=== PATIENT | female | born 2005 | race Caucasian/White ===

== ENCOUNTER 2025-01-19 15:04 | Inpatient (IN) ==
--- NOTE | 2025-01-19 15:20 | Emergency Department Note ---
Impression & Plan Suicide attempt by drug overdose, Suicide attempt by hanging ED Provider Note HISTORY OF PRESENT ILLNESS: Patient is a 19-year-old female presenting after a suicide attempt via overdose and hanging. Patient reports that she "feels like a failure." She reports that she has been lying to everybody because "I am a failure and not graduating." She reports that she was drinking alcohol last night. Reports that today was supposed to be her graduation and she wanted to end her life because "I am a failure." She reports that she attempted to hang herself with Bhavana lights in her bathroom, but did not lose consciousness and states "I was not even successful like killing myself." She reports that she also took a "lot of Advil." Patient was found unresponsive by her parents this afternoon. Patient reportedly was found with 2 empty bottles of liquid Advil. She reports that the bottles were not completely full but she did take what remained in both of the bottles. Reports that both bottles were about half full. She denies any other medications ingested. She reports her last drink of alcohol was around 1 AM on 01/19/2025. She is currently complaining of neck pain and "my whole body feels noodle-y." ROS: as above PHYSICAL EXAM: Constitutional: Patient appears in no acute distress. HENT: Head: Normocephalic and atraumatic. Eyes: EOMI, PERRL Mouth/Throat: Mucous membranes moist Neck: Trachea midline. Neck supple. Cervical collar in place. Slight abrasions to bilateral anterior/lateral neck Cardiovascular: Tachycardic with regular rhythm. No murmurs, rubs or gallops. Intact distal pulses. Pulmonary/Chest: No respiratory distress. Breath sounds clear and equal bilaterally. No wheezes or rales. Abdominal: Abdomen soft, no tenderness, rebound or guarding. Musculoskeletal: No edema, tenderness or deformity noted. Skin: Warm and dry. No rash, erythema, pallor or cyanosis Psychiatric: Appropriate mood and affect for situation. Neurological: Alert and keenly responsive. CN II-XII grossly intact, moving all extremities equally and fully. MDM: - Vitals signs showed tachycardia. - History obtained via patient. History as above. - Chronic conditions affecting care: None - Differential diagnoses include, but are not limited to: Alcohol intoxication; drug intoxication; acute kidney injury; electrolyte abnormality - Order placed for continuous cardiac monitoring. At this time, monitor showed rate of 90 bpm with normal sinus rhythm, per my interpretation. - External medical records reviewed. - Patient ingested anywhere from 20-40 tabs of 200 mg PO advil. - Called Poison Control at 15:18. Recommended observation for 4-6 hours from ingestion. They reported that symptoms of severe toxicity include acidosis, mental status changes, MOTOR SETTER depression, encephalopathy, seizure (with massive ingestion >400 mg/kg), LUZ, nausea and vomiting. - EKG image interpreted by myself showed normal sinus rhythm. Rate tachycardic at 134 bpm. QRS 68. No acute ischemic changes. - Laboratory workup interpreted by myself showed leukocytosis (WBC 14.15); normal PT/INR; stable electrolytes; negative hCG; normal lipase; normal troponin; normal AST/ALT; negative salicylate level; slightly positive medical alcohol (35.5); elevated acetaminophen level (49) - UA showed evidence of infection. Given 2 g IV Rocephin. Patient will require Keflex 500 mg 3 times daily for 7 days for treatment of her UTI while inpatient. - VBG shows slight acidosis at 7.35. - UDS negative - CTA head/neck negative for acute pathology. - Patient given 2L NS in ER and 4 mg IV zofran for nausea. - Patient was observed in the emergency department for 6 hours. She was deemed medically cleared at 21:05 on 01/19/2025. - Patient control center called back at 21:39. They report that given her acetaminophen level greater than 10 and unknown ingestion time, they recommend starting N-acetylcysteine on the patient. I did explain to them that the patient is denying any coingestions with Tylenol and on further questioning she reported that her ingestion time of the Advil was 11:30 AM to 12 PM. However, they report that given her elevated level on lab draw and no reported Tylenol ingestion, they recommend initiating N-acetylcysteine. Did report that a repeat level was being drawn, and they report that they would call back. - Repeat tylenol level at 22:20 was within normal limits at 20. However, on further discussion with the Poison Control Center at 22:23, they report that because the level was greater than 10 the patient had denied taking any Tylenol, she should still receive the 21 hour treatment of N-acetylcysteine. Recommended that LFTs and PT/INR be repeated 12 hours into the treatment. They state that if the LFTs or INR are rising, the patient needs to be continued on NAC. - N-acetylcysteine ordered. - Discussion was had with disability case manager about patient's case and need for admission - Hospitalist, Dr. Garcia, consulted for admission - Patient admitted to [facility]ist service for further evaluation and management. ASSESSMENT AND PLAN: Diagnosis: Suicide attempt via drug overdose; suicide attempt by hanging Plan: Admit Past Med/Surg History Problem List (Updated 01/19/25 @ 22:29 by Saima Gao MD) Suicide attempt by hanging (Acute) Suicide attempt by drug overdose (Acute) Social History Smoking Status: Never smoker Preferred Language: Hong Konger Feels Safe at Home: Yes Gender Identity: Female Allergies Allergies Allergy/AdvReac Type Severity Reaction Status Date / Time No Known Allergies Allergy Verified 01/19/25 16:22 Home Meds Home Medications Medication Instructions Recorded Confirmed ibuprofen 200 mg tablet (Advil) 400 mg PO Q6H PRN Pain 01/19/25 01/19/25 Results & Data (ED) Vital Signs Vital Signs - 24 hr 01/19/25 15:09 01/19/25 15:09 01/19/25 15:09 Temperature 36.4 C L 36.4 C L 36.4 C L Temperature Source Oral Oral Pulse Rate 115 H 115 H Pulse Rate [Apical] 115 H Pulse Rhythm [Apical] Pulse Strength [Apical] Respiratory Rate 22 22 22 Respiratory Effort / Characteristics Non-Labored Respiratory Depth Normal Respiratory Pattern Regular Blood Pressure 164/102 H 164/102 H Blood Pressure [Left Arm] 164/102 H Blood Pressure Mean 122 Blood Pressure Mean [Left Arm] 122 Blood Pressure Position Lying Blood Pressure Position [Left Arm] Semi-fowlers Pulse Oximetry 95 95 95 Oxygen Delivery Method Nasal Cannula Nasal Cannula Nasal Cannula Oxygen Flow Rate 2 2 2 Sepsis Recent Fever Within 48 Hours No Sepsis New/Unexplained Change in Mental Status No Sepsis Action Taken by Nursing Physician Notified Oxygen Flow Rate - Titration Pulse Oximetry Post Tiitration 01/19/25 16:07 01/19/25 16:17 01/19/25 16:48 Temperature Temperature Source Pulse Rate 109 H 114 H Pulse Rate [Apical] 125 H Pulse Rhythm [Apical] Pulse Strength [Apical] Respiratory Rate 18 14 Respiratory Effort / Characteristics Respiratory Depth Respiratory Pattern Blood Pressure Blood Pressure [Left Arm] 143/87 H Blood Pressure Mean Blood Pressure Mean [Left Arm] 105 Blood Pressure Position Blood Pressure Position [Left Arm] Semi-fowlers Pulse Oximetry 100 98 Oxygen Delivery Method Room Air Room Air Oxygen Flow Rate Sepsis Recent Fever Within 48 Hours Sepsis New/Unexplained Change in Mental Status Sepsis Action Taken by Nursing Oxygen Flow Rate - Titration Pulse Oximetry Post Tiitration 01/19/25 16:48 01/19/25 16:58 01/19/25 18:03 Temperature Temperature Source Pulse Rate Pulse Rate [Apical] 126 H 109 H Pulse Rhythm [Apical] Pulse Strength [Apical] Respiratory Rate 13 17 Respiratory Effort / Characteristics Respiratory Depth Respiratory Pattern Blood Pressure Blood Pressure [Left Arm] 168/107 H 120/87 Blood Pressure Mean Blood Pressure Mean [Left Arm] 127 98 Blood Pressure Position Blood Pressure Position [Left Arm] Semi-fowlers Semi-fowlers Pulse Oximetry 97 95 Oxygen Delivery Method Room Air Room Air Room Air Oxygen Flow Rate Sepsis Recent Fever Within 48 Hours Sepsis New/Unexplained Change in Mental Status Sepsis Action Taken by Nursing Oxygen Flow Rate - Titration Pulse Oximetry Post Tiitration 01/19/25 19:00 01/19/25 19:49 01/19/25 20:00 Temperature 36.6 C Temperature Source Oral Pulse Rate Pulse Rate [Apical] 101 H 93 H Pulse Rhythm [Apical] Pulse Strength [Apical] Respiratory Rate 19 16 Respiratory Effort / Characteristics Non-Labored Spontaneous Non-Labored Spontaneous Respiratory Depth Normal Normal Respiratory Pattern Regular Regular Blood Pressure Blood Pressure [Left Arm] 151/91 H 188/115 H Blood Pressure Mean Blood Pressure Mean [Left Arm] 111 139 Blood Pressure Position Blood Pressure Position [Left Arm] Lying Lying Pulse Oximetry 94 89 L 97 Oxygen Delivery Method Room Air Room Air Nasal Cannula Nasal Cannula Oxygen Flow Rate 0 2 Sepsis Recent Fever Within 48 Hours Sepsis New/Unexplained Change in Mental Status Sepsis Action Taken by Nursing Oxygen Flow Rate - Titration 2 Pulse Oximetry Post Tiitration 94 01/19/25 20:13 01/19/25 21:00 01/19/25 21:09 Temperature 36.6 C Temperature Source Oral Pulse Rate 91 H Pulse Rate [Apical] 93 H 102 H Pulse Rhythm [Apical] Regular Pulse Strength [Apical] Normal Respiratory Rate 17 16 Respiratory Effort / Characteristics Non-Labored Spontaneous Non-Labored Spontaneous Respiratory Depth Normal Normal Respiratory Pattern Regular Regular Blood Pressure Blood Pressure [Left Arm] 110/71 110/71 Blood Pressure Mean Blood Pressure Mean [Left Arm] 84 84 Blood Pressure Position Blood Pressure Position [Left Arm] Lying Lying Pulse Oximetry 97 95 Oxygen Delivery Method Room Air Nasal Cannula Oxygen Flow Rate 2 Sepsis Recent Fever Within 48 Hours Sepsis New/Unexplained Change in Mental Status Sepsis Action Taken by Nursing Oxygen Flow Rate - Titration Pulse Oximetry Post Tiitration 01/19/25 22:00 01/19/25 23:00 Temperature Temperature Source Pulse Rate Pulse Rate [Apical] 102 H Pulse Rhythm [Apical] Pulse Strength [Apical] Respiratory Rate 18 17 Respiratory Effort / Characteristics Non-Labored Spontaneous Non-Labored Spontaneous Respiratory Depth Normal Normal Respiratory Pattern Regular Regular Blood Pressure Blood Pressure [Left Arm] 114/84 116/87 Blood Pressure Mean Blood Pressure Mean [Left Arm] 94 96 Blood Pressure Position Blood Pressure Position [Left Arm] Lying Lying Pulse Oximetry 98 98 Oxygen Delivery Method Room Air Room Air Oxygen Flow Rate Sepsis Recent Fever Within 48 Hours Sepsis New/Unexplained Change in Mental Status Sepsis Action Taken by Nursing Oxygen Flow Rate - Titration Pulse Oximetry Post Tiitration Laboratory Data 01/19/25 15:13 01/19/25 15:13 Lab Results 01/19/25 01/19/25 01/19/25 Range/Units 15:13 15:19 16:31 WBC 14.15 H (4.8-10.8) K/ul RBC 4.78 (4.20-5.40) M/uL Hgb 14.6 (12.0-16.0) g/dl POC Hgb 15.0 (12.0-16.0) g/dl Hct 43.4 (37.0-47.0) % POC Hct 44 (37-47) % MCV 90.8 (80.0-100.0) fL MCH 30.5 (25.0-34.0) pg MCHC 33.6 (32.0-36.0) g/dL RDW Std Deviation 42.5 (36.4-46.3) fL RDW Coeff of Matilde 12.9 (11.5-14.5) % Plt Count 285 (130-400) K/uL MPV 9.6 (9.4-12.4) fL Immature Gran % (Auto) 0.4 % Neut % (Auto) 83.4 % Lymph % (Auto) 8.4 % Garvin % (Auto) 7.3 % Eos % (Auto) 0.1 % Baso % (Auto) 0.4 % Neut # (Auto) 11.81 H (1.40-6.50) K/uL Lymph # (Auto) 1.19 L (1.20-3.40) K/uL Garvin # (Auto) 1.04 H (0.11-0.59) K/uL Eos # (Auto) 0.01 (0.00-0.50) K/uL Baso # (Auto) 0.05 (0.00-0.20) K/uL Immature Gran # (Auto) 0.05 (0.01-0.20) K/uL PT 11.1 (9.0-12.0) Seconds INR 1.0 (0.9-1.1) VBG pH 7.35 L (7.36-7.41) VBG pCO2 44 (38-50) mmHg VBG pO2 31 mmHg VBG HCO3 24 mmol/L VBG O2 Saturation < 60.0 % VBG Base Excess -1.5 mEq/L POC Sodium 142 (135-144) mmol/L Sodium 141 (136-145) mmol/L POC Potassium 4.1 (3.3-5.0) mmol/L Potassium 4.1 (3.5-5.1) mmol/L POC Chloride 106 (101-112) mmol/L Chloride 107 (98-107) mmol/L Carbon Dioxide 24 (21-32) mmol/L POC Total CO2 21 L (24-31) mmol/L Anion Gap 10 (3-11) POC Anion Gap 20.0 (16-25) mmol/L POC BUN 12 (7-18) mg/dl BUN 13 (6-23) mg/dl Creatinine 0.83 (0.6-1.2) mg/dl POC Creatinine 1.0 (0.6-1.3) mg/dl Est Cr Clr Drug Dosing 137.6 ml/min eGFR 102.79 BUN/Creatinine Ratio 15.7 (10-20) Glucose 90 (70-99(Fasting)) mg/dl POC Glucose (other) 94 (70-99) mg/dl Calcium 9.1 (8.6-10.3) mg/dl POC Ioniz Calcium Emma 1.13 (1.12-1.32) mmol/l Magnesium 1.7 (1.7-2.4) mg/dl Total Bilirubin 0.5 (0.2-1.0) mg/dl AST 25 (13-39) U/L ALT 15 (7-52) U/L Alkaline Phosphatase 43 (34-104) U/L Troponin I High Sens 2.8 (0-14) pg/ml Total Protein 7.7 (6.0-8.3) gm/dl Albumin 4.5 (3.4-5.0) gm/dl Globulin 3.2 (2.5-4.0) gm/dl Albumin/Globulin Ratio 1.4 (0.9-2) Lipase 33 (11-82) U/L HCG, Qual Negative (Negative) Urine Color Urine Appearance (Clear) Urine pH (4.5-7.5) Ur Specific [place] (1.000-1.030) Urine Protein (Negative) Urine Glucose (UA) (Negative) Urine Ketones (Negative) Urine Blood (Negative) Urine Nitrite (Negative) Urine Bilirubin (Negative) Urine Urobilinogen (Negative) Ur Leukocyte Esterase (Negative) Urine WBC (Auto) (0-5) /hpf Urine RBC (Auto) (0-2) /hpf U Hyaline Cast (Auto) (0-2) /lpf U Epithel Cells (Auto) (0-2) /hpf Urine Bacteria (Auto) (None Seen) Salicylates < 3.0 L (3.0-30) mg/dl Urine Opiates Screen (Neg) Ur Methadone, Qual (Neg) Urine Fentanyl Screen (Neg) Acetaminophen 49 H (10-30) ug/ml Urine Barbiturates (Neg) Ur Phencyclidine (PCP) (Neg) U Amphetamin/Meth Scrn (Neg) MDMA (Ecstasy) Screen (Neg) U Benzodiazepines Scrn (Neg) Ur Cocaine Metabolite (Neg) U Marijuana (THC) Screen (Neg) Ethyl Alcohol mg/dL 35.5 H (<10.0) mg/dl SARS-CoV-2, RNA, NAAT (NEGATIVE) 01/19/25 01/19/25 01/19/25 Range/Units 19:54 19:56 21:15 WBC (4.8-10.8) K/ul RBC (4.20-5.40) M/uL Hgb (12.0-16.0) g/dl POC Hgb (12.0-16.0) g/dl Hct (37.0-47.0) % POC Hct (37-47) % MCV (80.0-100.0) fL MCH (25.0-34.0) pg MCHC (32.0-36.0) g/dL RDW Std Deviation (36.4-46.3) fL RDW Coeff of Matilde (11.5-14.5) % Plt Count (130-400) K/uL MPV (9.4-12.4) fL Immature Gran % (Auto) % Neut % (Auto) % Lymph % (Auto) % Garvin % (Auto) % Eos % (Auto) % Baso % (Auto) % Neut # (Auto) (1.40-6.50) K/uL Lymph # (Auto) (1.20-3.40) K/uL Garvin # (Auto) (0.11-0.59) K/uL Eos # (Auto) (0.00-0.50) K/uL Baso # (Auto) (0.00-0.20) K/uL Immature Gran # (Auto) (0.01-0.20) K/uL PT (9.0-12.0) Seconds INR (0.9-1.1) VBG pH (7.36-7.41) VBG pCO2 (38-50) mmHg VBG pO2 mmHg VBG HCO3 mmol/L VBG O2 Saturation % VBG Base Excess mEq/L POC Sodium (135-144) mmol/L Sodium (136-145) mmol/L POC Potassium (3.3-5.0) mmol/L Potassium (3.5-5.1) mmol/L POC Chloride (101-112) mmol/L Chloride (98-107) mmol/L Carbon Dioxide (21-32) mmol/L POC Total CO2 (24-31) mmol/L Anion Gap (3-11) POC Anion Gap (16-25) mmol/L POC BUN (7-18) mg/dl BUN (6-23) mg/dl Creatinine (0.6-1.2) mg/dl POC Creatinine (0.6-1.3) mg/dl Est Cr Clr Drug Dosing ml/min eGFR BUN/Creatinine Ratio (10-20) Glucose (70-99(Fasting)) mg/dl POC Glucose (other) (70-99) mg/dl Calcium (8.6-10.3) mg/dl POC Ioniz Calcium Emma (1.12-1.32) mmol/l Magnesium (1.7-2.4) mg/dl Total Bilirubin (0.2-1.0) mg/dl AST (13-39) U/L ALT (7-52) U/L Alkaline Phosphatase (34-104) U/L Troponin I High Sens (0-14) pg/ml Total Protein (6.0-8.3) gm/dl Albumin (3.4-5.0) gm/dl Globulin (2.5-4.0) gm/dl Albumin/Globulin Ratio (0.9-2) Lipase (11-82) U/L HCG, Qual (Negative) Urine Color Yellow Urine Appearance Clear (Clear) Urine pH 6.5 (4.5-7.5) Ur Specific [place] > 1.045 H (1.000-1.030) Urine Protein Negative (Negative) Urine Glucose (UA) Negative (Negative) Urine Ketones Trace H (Negative) Urine Blood 3+ H (Negative) Urine Nitrite Negative (Negative) Urine Bilirubin Negative (Negative) Urine Urobilinogen Negative (Negative) Ur Leukocyte Esterase 1+ H (Negative) Urine WBC (Auto) 21-50 H (0-5) /hpf Urine RBC (Auto) 0-2 (0-2) /hpf U Hyaline Cast (Auto) 0-2 (0-2) /lpf U Epithel Cells (Auto) 3-5 H (0-2) /hpf Urine Bacteria (Auto) 2+ H (None Seen) Salicylates (3.0-30) mg/dl Urine Opiates Screen Neg (Neg) Ur Methadone, Qual Neg (Neg) Urine Fentanyl Screen Neg (Neg) Acetaminophen 20 (10-30) ug/ml Urine Barbiturates Neg (Neg) Ur Phencyclidine (PCP) Neg (Neg) U Amphetamin/Meth Scrn Neg (Neg) MDMA (Ecstasy) Screen Neg (Neg) U Benzodiazepines Scrn Neg (Neg) Ur Cocaine Metabolite Neg (Neg) U Marijuana (THC) Screen Neg (Neg) Ethyl Alcohol mg/dL (<10.0) mg/dl SARS-CoV-2, RNA, NAAT NEGATIVE (NEGATIVE) Administered Medications Discontinued Medications Sodium Chloride (Nss) 1,000 mls @ 999 mls/hr IV .Q1H1M ONE Stop: 01/19/25 16:22 Last Infusion: 01/19/25 16:43 Dose: Infused Documented By: Admin: 01/19/25 15:26 Dose: 999 mls/hr Documented By: TNK Sodium Chloride (Nss) 1,000 mls @ 999 mls/hr IV .Q1H1M ONE Stop: 01/19/25 18:17 Last Infusion: 01/19/25 19:12 Dose: Infused Documented By: Admin: 01/19/25 17:29 Dose: 999 mls/hr Documented By: CEF Ceftriaxone Sodium (Rocephin) 2,000 mg in 50 mls @ 100 mls/hr IV NOW STA Stop: 01/19/25 21:35 Last Admin: 01/19/25 22:26 Dose: 100 mls/hr Documented By: AN Ioversol (Optiray 320 125ml) 119 ml IV ONCE ONE Stop: 01/19/25 15:37 Last Admin: 01/19/25 15:36 Dose: 119 ml Documented By: PLW Ondansetron HCl (Ondansetron Inj 2 Mg/Ml 2 Ml Vial) 4 mg IV NOW STA Stop: 01/19/25 15:22 Last Admin: 01/19/25 15:26 Dose: 4 mg Documented By: TNK Imaging Data Radiologist's Impression: Head CTA 01/19/25 15:23 EXAM: CT Angiography Head and Neck With Intravenous Contrast INDICATION: Attempted hanging. TECHNIQUE: [place] [facility] [place]/head and neck CT angiography protocol performed with intravenous contrast. Sagittal and coronal reformatted images were created and reviewed. This CT exam was performed using one or more of the following dose reduction techniques: automated exposure control, adjustment of the mA and/or kV according to patient size, and/or use of iterative reconstruction technique. MIP reconstructed images were created and reviewed. CONTRAST: 119ml of Optiray 320 was administered intravenously. COMPARISON: None. FINDINGS: HEAD: Right anterior cerebral artery: No abnormality noted. No occlusion or significant stenosis. Anterior communicating artery is present. No aneurysm. Right middle cerebral artery: No abnormality noted. No occlusion or significant stenosis. No aneurysm. Right posterior cerebral artery: No abnormality noted. No occlusion or significant stenosis. No aneurysm. Right intracranial internal carotid artery: No abnormality noted. No significant stenosis. No dissection or occlusion. Right intracranial vertebral artery: No abnormality noted. No significant stenosis. No dissection or occlusion. Left anterior cerebral artery: No abnormality noted. No occlusion or significant stenosis. No aneurysm. Left middle cerebral artery: No abnormality noted. No occlusion or significant stenosis. No aneurysm. Left posterior cerebral artery: No abnormality noted. No occlusion or significant stenosis. No aneurysm. Left intracranial internal carotid artery: No abnormality noted. No significant stenosis. No dissection or occlusion. Left intracranial vertebral artery: No abnormality noted. No significant stenosis. No dissection or occlusion. Basilar artery: No abnormality noted. No occlusion or significant stenosis. No aneurysm. Other vasculature: Patent dural venous sinuses. No vascular malformation. Brain and extra-axial spaces: There is mild nonspecific periventricular white matter hypodensity. No acute territorial infarct noted. No hemorrhage. No extra-axial fluid collection or hydrocephalus. NECK: Right common carotid artery: No abnormality noted. No significant stenosis. No dissection or occlusion. Right extracranial internal carotid artery: No abnormality noted. No significant stenosis. No dissection or occlusion. Right external carotid artery: No abnormality noted. No occlusion. Right extracranial vertebral artery: No abnormality noted. No significant stenosis. No dissection or occlusion. Left common carotid artery: No abnormality noted. No significant stenosis. No dissection or occlusion. Left extracranial internal carotid artery: No abnormality noted. No significant stenosis. No dissection or occlusion. Left external carotid artery: No abnormality noted. No occlusion. Left extracranial vertebral artery: No abnormality noted. No significant stenosis. No dissection or occlusion. Lung apices: Extensive patchy peribronchial infiltrates noted in the right upper lobe. No apical pneumothorax or pleural effusion. HEAD and NECK: Bones/joints: The bones are intact. In particular, C2 and the hyoid bone are intact. Soft tissues: No abnormality noted. Lymph nodes: Shotty multicompartment nodes present bilaterally. No pathologically enlarged nodes. CAROTID STENOSIS REFERENCE USING NASCET CRITERIA: % ICA stenosis = (1 - narrowest ICA diameter/diameter of distal cervical ICA) x 100. Mild - <50% stenosis. Moderate - 50-69% stenosis. Severe - 70-94% stenosis. Near occlusion - 95-99% stenosis. Occluded - 100% stenosis. IMPRESSION: 1. No angiographic abnormality in the head or neck. 2. Patchy peribronchial infiltrates noted in the right upper lobe. Consider aspiration. ACT 112: N/A Electronically signed by Irene Samano 01-19-2025 4:01 PM Neck CTA 01/19/25 15:23 EXAM: CT Angiography Head and Neck With Intravenous Contrast INDICATION: Attempted hanging. TECHNIQUE: [place] [facility] [place]/head and neck CT angiography protocol performed with intravenous contrast. Sagittal and coronal reformatted images were created and reviewed. This CT exam was performed using one or more of the following dose reduction techniques: automated exposure control, adjustment of the mA and/or kV according to patient size, and/or use of iterative reconstruction technique. MIP reconstructed images were created and reviewed. CONTRAST: 119ml of Optiray 320 was administered intravenously. COMPARISON: None. FINDINGS: HEAD: Right anterior cerebral artery: No abnormality noted. No occlusion or significant stenosis. Anterior communicating artery is present. No aneurysm. Right middle cerebral artery: No abnormality noted. No occlusion or significant stenosis. No aneurysm. Right posterior cerebral artery: No abnormality noted. No occlusion or significant stenosis. No aneurysm. Right intracranial internal carotid artery: No abnormality noted. No significant stenosis. No dissection or occlusion. Right intracranial vertebral artery: No abnormality noted. No significant stenosis. No dissection or occlusion. Left anterior cerebral artery: No abnormality noted. No occlusion or significant stenosis. No aneurysm. Left middle cerebral artery: No abnormality noted. No occlusion or significant stenosis. No aneurysm. Left posterior cerebral artery: No abnormality noted. No occlusion or significant stenosis. No aneurysm. Left intracranial internal carotid artery: No abnormality noted. No significant stenosis. No dissection or occlusion. Left intracranial vertebral artery: No abnormality noted. No significant stenosis. No dissection or occlusion. Basilar artery: No abnormality noted. No occlusion or significant stenosis. No aneurysm. Other vasculature: Patent dural venous sinuses. No vascular malformation. Brain and extra-axial spaces: There is mild nonspecific periventricular white matter hypodensity. No acute territorial infarct noted. No hemorrhage. No extra-axial fluid collection or hydrocephalus. NECK: Right common carotid artery: No abnormality noted. No significant stenosis. No dissection or occlusion. Right extracranial internal carotid artery: No abnormality noted. No significant stenosis. No dissection or occlusion. Right external carotid artery: No abnormality noted. No occlusion. Right extracranial vertebral artery: No abnormality noted. No significant stenosis. No dissection or occlusion. Left common carotid artery: No abnormality noted. No significant stenosis. No dissection or occlusion. Left extracranial internal carotid artery: No abnormality noted. No significant stenosis. No dissection or occlusion. Left external carotid artery: No abnormality noted. No occlusion. Left extracranial vertebral artery: No abnormality noted. No significant stenosis. No dissection or occlusion. Lung apices: Extensive patchy peribronchial infiltrates noted in the right upper lobe. No apical pneumothorax or pleural effusion. HEAD and NECK: Bones/joints: The bones are intact. In particular, C2 and the hyoid bone are intact. Soft tissues: No abnormality noted. Lymph nodes: Shotty multicompartment nodes present bilaterally. No pathologically enlarged nodes. CAROTID STENOSIS REFERENCE USING NASCET CRITERIA: % ICA stenosis = (1 - narrowest ICA diameter/diameter of distal cervical ICA) x 100. Mild - <50% stenosis. Moderate - 50-69% stenosis. Severe - 70-94% stenosis. Near occlusion - 95-99% stenosis. Occluded - 100% stenosis. IMPRESSION: 1. No angiographic abnormality in the head or neck. 2. Patchy peribronchial infiltrates noted in the right upper lobe. Consider aspiration. ACT 112: N/A Electronically signed by Irene Samano 01-19-2025 4:01 PM Discharge Plan Visit Data Chief Complaint: Trauma Stated Complaint: UNRESPONSIVE, POSSIBLE OVERDOSE, ED Provider: Saima Gao Discharge Problem: Suicide attempt by drug overdose, Suicide attempt by hanging Condition: Fair Forms Stand Alone Forms: My [facility], Suicide Prevention Resources Prescriptions Prescriptions: No Action ibuprofen [Advil] 200 mg Tablet 400 mg PO Q6H PRN (Reason: Pain) Referrals Referrals: PCP,NO [Primary Care Provider] -
[2025-01-19] MEDS: ONDANSETRON INJ 2 MG/ML 2 ML VIAL IV STA ×2 (15:26→23:45)
[2025-01-19] MEDS: SODIUM CHLORIDE 0.9% 1,000 ML IV ONE ×2 (15:26→17:29)
[2025-01-19 15:31] LABS: iSTAT Ionized Calcium 1.13 mmol/l (1.12-1.32); iSTAT Potassium 4.1 mmol/L (3.3-5.0)
[2025-01-19] MEDS: OPTIRAY 320 125ml IV ONE (15:36)
[2025-01-19 15:38] LABS: Basophils # (auto) 0.05 K/uL (0.00-0.20); Basophils % (auto) 0.4 %; Eosinophils # (auto) 0.01 K/uL (0.00-0.50); Eosinophils % (auto) 0.1 %; Hematocrit (blood only) 43.4 % (37.0-47.0); Hemoglobin 14.6 g/dl (12.0-16.0); Immature Granulocytes # (auto) 0.05 K/uL (0.01-0.20); Immature Granulocytes % (auto) 0.4 %; Lymphocytes # (auto) 1.19 K/uL (1.20-3.40); Lymphocytes % (auto) 8.4 %; Mean Corpuscular Hemoglobin 30.5 pg (25.0-34.0); Mean Corpuscular Hgb Conc 33.6 g/dL (32.0-36.0); Mean Corpuscular Volume 90.8 fL (80.0-100.0); Mean Platelet Volume 9.6 fL (9.4-12.4); Monocytes # (auto) 1.04 K/uL (0.11-0.59); Monocytes % (auto) 7.3 %; Neutrophils # (auto) 11.81 K/uL (1.40-6.50); Neutrophils % (auto) 83.4 %; Platelet Count 285 K/uL (130-400); RDW Coefficient of Variation 12.9 % (11.5-14.5); RDW Standard Deviation 42.5 fL (36.4-46.3); Red Blood Count 4.78 M/uL (4.20-5.40); White Blood Count 14.15 K/ul (4.8-10.8)
[2025-01-19 15:53] LABS: Pregnancy Test, Serum Negative (Negative)
[2025-01-19 16:01] LABS: BUN Creatinine Ratio 15.7 (10-20); Calcium 9.1 mg/dl (8.6-10.3); Creatinine Clr Calc Pharmacy 137.6 ml/min; Potassium 4.1 mmol/L (3.5-5.1)
--- NOTE | 2025-01-19 16:02 | CT Scan Report ---
EXAM: CT Angiography Head and Neck With Intravenous Contrast INDICATION: Attempted hanging. TECHNIQUE: [place]/head and neck CT angiography protocol performed with intravenous contrast. Sagittal and coronal reformatted images were created and reviewed. This CT exam was performed using one or more of the following dose reduction techniques: automated exposure control, adjustment of the mA and/or kV according to patient size, and/or use of iterative reconstruction technique. MIP reconstructed images were created and reviewed. CONTRAST: 119ml of Optiray 320 was administered intravenously. COMPARISON: None. FINDINGS: HEAD: Right anterior cerebral artery: No abnormality noted. No occlusion or significant stenosis. Anterior communicating artery is present. No aneurysm. Right middle cerebral artery: No abnormality noted. No occlusion or significant stenosis. No aneurysm. Right posterior cerebral artery: No abnormality noted. No occlusion or significant stenosis. No aneurysm. Right intracranial internal carotid artery: No abnormality noted. No significant stenosis. No dissection or occlusion. Right intracranial vertebral artery: No abnormality noted. No significant stenosis. No dissection or occlusion. Left anterior cerebral artery: No abnormality noted. No occlusion or significant stenosis. No aneurysm. Left middle cerebral artery: No abnormality noted. No occlusion or significant stenosis. No aneurysm. Left posterior cerebral artery: No abnormality noted. No occlusion or significant stenosis. No aneurysm. Left intracranial internal carotid artery: No abnormality noted. No significant stenosis. No dissection or occlusion. Left intracranial vertebral artery: No abnormality noted. No significant stenosis. No dissection or occlusion. Basilar artery: No abnormality noted. No occlusion or significant stenosis. No aneurysm. Other vasculature: Patent dural venous sinuses. No vascular malformation. Brain and extra-axial spaces: There is mild nonspecific periventricular white matter hypodensity. No acute territorial infarct noted. No hemorrhage. No extra-axial fluid collection or hydrocephalus. NECK: Right common carotid artery: No abnormality noted. No significant stenosis. No dissection or occlusion. Right extracranial internal carotid artery: No abnormality noted. No significant stenosis. No dissection or occlusion. Right external carotid artery: No abnormality noted. No occlusion. Right extracranial vertebral artery: No abnormality noted. No significant stenosis. No dissection or occlusion. Left common carotid artery: No abnormality noted. No significant stenosis. No dissection or occlusion. Left extracranial internal carotid artery: No abnormality noted. No significant stenosis. No dissection or occlusion. Left external carotid artery: No abnormality noted. No occlusion. Left extracranial vertebral artery: No abnormality noted. No significant stenosis. No dissection or occlusion. Lung apices: Extensive patchy peribronchial infiltrates noted in the right upper lobe. No apical pneumothorax or pleural effusion. HEAD and NECK: Bones/joints: The bones are intact. In particular, C2 and the hyoid bone are intact. Soft tissues: No abnormality noted. Lymph nodes: Shot[place] multicompartment nodes present bilaterally. No pathologically enlarged nodes. CAROTID STENOSIS REFERENCE USING NASCET CRITERIA: % ICA stenosis = (1 - narrowest ICA diameter/diameter of distal cervical ICA) x 100. Mild - <50% stenosis. Moderate - 50-69% stenosis. Severe - 70-94% stenosis. Near occlusion - 95-99% stenosis. Occluded - 100% stenosis. IMPRESSION: 1. No angiographic abnormality in the head or neck. 2. Patchy peribronchial infiltrates noted in the right upper lobe. Consider aspiration. ACT 112: N/A Electronically signed by Irene Samano 01-19-2025 4:01 PM
[2025-01-19 16:06] LABS: Prothrombin Time 11.1 Seconds (9.0-12.0)
[2025-01-19 16:08] LABS: Troponin I High Sensitivity 2.8 pg/ml (0-14)
[2025-01-19 16:46] LABS: Base Excess VBG -1.5 mEq/L; HCO3 VBG 24 mmol/L; Oxygen Saturation VBG < 60.0 %; PCO2 VBG 44 mmHg (38-50); PO2 VBG 31 mmHg; pH VBG 7.35 (7.36-7.41)
[2025-01-19 16:52] LABS: Albumin Globulin Ratio 1.4 (0.9-2); Albumin Level 4.5 gm/dl (3.4-5.0); Bilirubin,Total 0.5 mg/dl (0.2-1.0); Globulin 3.2 gm/dl (2.5-4.0); Magnesium 1.7 mg/dl (1.7-2.4); Total Protein 7.7 gm/dl (6.0-8.3)
[2025-01-19 17:22] LABS: Acetaminophen 49 ug/ml (10-30); Salicylate < 3.0 mg/dl (3.0-30)
[2025-01-19 20:21] LABS: Appearance Urine Clear (Clear); Bacteria Urine Automated 2+ (None Seen); Bilirubin Urine Negative (Negative); Blood Urine 3+ (Negative); Cast Urine Automated 0-2 /lpf (0-2); Color Urine Yellow; Glucose Urine UA Negative (Negative); Ketones Urine Trace (Negative); Leukocyte Esterase Urine 1+ (Negative); Nitrite Urine Negative (Negative); Protein Urine Negative (Negative); RBC Urine Automated 0-2 /hpf (0-2); Specific Gravity Urine > 1.045 (1.000-1.030); Urobilinogen Urine Negative (Negative); WBC Urine Automated 21-50 /hpf (0-5); pH Urine 6.5 (4.5-7.5)
[2025-01-19 20:49] LABS: Amphetamines+Metham, Urine Neg (Neg); Barbiturates, Urine Neg (Neg); Benzodiazepine, Urine Neg (Neg); Cocaine, Urine Neg (Neg); Fentanyl, Urine Neg (Neg); MDMA (Ecstacy), Urine Neg (Neg); Marijuana, Urine Neg (Neg); Methadone, Urine Neg (Neg); Opiate, Urine Neg (Neg); Phencyclidine, Urine Neg (Neg)
[2025-01-19] MEDS: cefTRIAXone SODIUM 2,000 MG/50 ML BAG IV STA (22:26)
[2025-01-19] MEDS: AcetylCYSTEINE 15,000 MG in DEXTROSE 5% 200 ML IV ONE (23:15)
[2025-01-19] MEDS: AcetylCYSTEINE IV 21 HR REGIMEN (>40KG) IV STA (23:18)
[2025-01-19] MEDS: STAT IV/IM STA (23:19)
[2025-01-19 23:36] LABS: INR 1.1 (0.9-1.1); Prothrombin Time 11.4 Seconds (9.0-12.0)
[2025-01-20] MEDS ORDERED: ONDANSETRON INJ 2 MG/ML 2 ML VIAL IV PRN (00:10)
[2025-01-20] MEDS: PROCHLORPERAZINE 1 ML IV ONE (00:36)
[2025-01-20] MEDS: AcetylCYSTEINE 5,000 MG in DEXTROSE 5% 500 ML IV ONE (00:37)
--- NOTE | 2025-01-20 03:35 | History & Physical Report ---
Date of Service January 19, 2025 Assessment & Plan (1) Suicide attempt by drug overdose: (2) Suicide attempt by hanging: (3) Aspiration into airway: Plan 19-year-old female presenting after suicide attempt. Patient took at least 1 bottle of liquid Advil, attempted to hang herself #Suicide attempt by drug overdosepatient reports taking at least 1 bottle of liquid Advil, denies taking acetaminophen. Denies alcohol use today Poison control contacted. They were concerned about patient's elevated acetaminophen level of 49 which decreased to 20 on repeat. Patient denies taking acetaminophen Admit to PCU Continue N-acetylcysteine per protocol Repeat BMP, CBC, LFTs and Tylenol level in the morning Maintain one-to-one observation Suicide precautions Psychiatry consultation appreciated #Suicide attempt by hangingno evidence of neck trauma, no stridor Maintain one-to-one observation, suicide precautions Psychiatry consultation appreciated #UTIUA suggestive of infection Continue ceftriaxone #Aspiration into airway CTA of the neck with patchy peribronchial infiltrates in the right upper lobe, possible aspiration. Patient with no shortness of breath, cough. She has adequate oxygenation on room air Continue to monitor Admission and Anticipated Discharge Date Admission Date: January 19, 2025 History of Present Illness Chief Complaint: suicide attempt Primary Care Provider: NO PCP Viktoriya Bowen Is a 19-year-old female with no significant past medical or surgical history presenting after intentional overdose and attempted hanging. Patient with increased interpersonal stress of late. She did not pass her final semester at [employer]. She was due to graduate today and has been telling her family and friends that she was graduating. Today she felt overwhelmed by the stress of having to face the truth of not graduating. Patient took "a lot of Advil" unable to quantify exact amount. She also tried briefly to hang herself with [place] lights in her bathroom but states she "did not go through with that" Her family found her unresponsive this afternoon with 2 empty bottles of liquid Advil Patient with no formal psychiatric diagnosis. She did have a mental health assessment with her PCP over the summer and her primary care doctor recommended that she consider therapy because she was scoring very high for possible depression. Patient has had passive suicidal ideations in the past but no plan or prior attempts. she reports that her recent stress has "been building up" Patient denies taking Tylenol. She did drink alcohol on Tuesday p.m. 01/18/2025. Otherwise denies coingestants Denies hallucinations Allergies Allergy/AdvReac Type Severity Reaction Status Date / Time No Known Allergies Allergy Verified 01/19/25 16:22 Home Medications Medication Instructions Recorded Confirmed Type ibuprofen 200 mg tablet (Advil) 400 mg PO Q6H PRN Pain 01/19/25 01/19/25 History Past Med/Surg History Problem List (Updated 01/20/25 @ 03:30 by Rossi Garcia DO) Aspiration into airway Suicide attempt by hanging (Acute) Suicide attempt by drug overdose (Acute) Social History Smoking Status: Never smoker Preferred Language: Belarusian Feels Safe at Home: Yes Gender Identity: Female Review of Systems Review of Systems: All systems reviewed & are unremarkable except as noted in HPI & below Physical Exam Physical Exam: General: patient resting comfortably, NAD, non-toxic in appearance, AA&O x 4 Skin: warm, dry, intact, no rashes or lesions HEENT: NC/AT, PERRL, EOMI, anicteric sclera, conjunctiva without injection, external ear normal to inspection and nontender, nares patent, moist mucus membranes, dentition intact, no oropharyngeal lesions, neck supple, trachea midline, no LAD, no thyromegaly, no JVD Heart: +S1/S2, regular, no m/r/g Lungs: equal air entry bilaterally, no rales/rhonchi/wheezes Abd: +BS, soft, NT/ND, no masses/organomegaly/ascites Ext: warm, 2+ pulses in UE/LE bilaterally, no clubbing/cyanosis or edema Neuro: nonfocal, patient AA&O x 4, speech intact, no facial droop, moving all extremities on command with equal strength 5/5 Results & Data Results & Data Vital Signs (Past 12 Hours) Vital Signs Temp Pulse Pulse Resp BP Pulse Ox Pulse Ox 01/20/25 03:15 96 H 18 121/87 95 01/20/25 03:14 95 01/20/25 03:00 99 H 18 121/87 93 01/20/25 02:00 104 H 18 106/81 95 01/20/25 01:00 94 H 18 140/100 95 01/20/25 00:13 114 H 01/20/25 00:00 98 H 18 140/102 H 100 01/19/25 23:00 17 116/87 98 01/19/25 22:00 102 H 18 114/84 98 01/19/25 21:09 102 H 16 110/71 95 01/19/25 21:00 36.6 C 93 H 17 110/71 97 01/19/25 20:13 91 H 01/19/25 20:00 93 H 16 188/115 H 97 01/19/25 19:49 89 L 01/19/25 19:00 36.6 C 101 H 19 151/91 H 94 01/19/25 18:03 109 H 17 120/87 95 01/19/25 16:58 126 H 13 168/107 H 97 01/19/25 16:48 01/19/25 16:48 114 H 14 98 01/19/25 16:17 109 H 01/19/25 16:07 125 H 18 143/87 H 100 O2 Del Method O2 Del Method O2 Flow Rate 01/20/25 03:15 Room Air 01/20/25 03:14 Room Air 01/20/25 03:00 Room Air 01/20/25 02:00 Room Air 01/20/25 01:00 Room Air 01/20/25 00:13 01/20/25 00:00 Room Air 01/19/25 23:00 Room Air 01/19/25 22:00 Room Air 01/19/25 21:09 Nasal Cannula 2 01/19/25 21:00 Room Air 01/19/25 20:13 01/19/25 20:00 Nasal Cannula 2 01/19/25 19:49 Room Air, Nasal Cannula 0 01/19/25 19:00 Room Air 01/19/25 18:03 Room Air 01/19/25 16:58 Room Air 01/19/25 16:48 Room Air 01/19/25 16:48 Room Air 01/19/25 16:17 01/19/25 16:07 Room Air Laboratory Results Laboratory Results WBC 14.15 K/ul (4.8-10.8) H 01/19/25 15:13 RBC 4.78 M/uL (4.20-5.40) 01/19/25 15:13 Hgb 14.6 g/dl (12.0-16.0) 01/19/25 15:13 POC Hgb 15.0 g/dl (12.0-16.0) 01/19/25 15:19 Hct 43.4 % (37.0-47.0) 01/19/25 15:13 POC Hct 44 % (37-47) 01/19/25 15:19 MCV 90.8 fL (80.0-100.0) 01/19/25 15:13 MCH 30.5 pg (25.0-34.0) 01/19/25 15:13 MCHC 33.6 g/dL (32.0-36.0) 01/19/25 15:13 RDW Std Deviation 42.5 fL (36.4-46.3) 01/19/25 15:13 RDW Coeff of [place] 12.9 % (11.5-14.5) 01/19/25 15:13 Plt Count 285 K/uL (130-400) 01/19/25 15:13 MPV 9.6 fL (9.4-12.4) 01/19/25 15:13 Immature Gran % (Auto) 0.4 % 01/19/25 15:13 Neut % (Auto) 83.4 % 01/19/25 15:13 Lymph % (Auto) 8.4 % 01/19/25 15:13 [place] % (Auto) 7.3 % 01/19/25 15:13 Eos % (Auto) 0.1 % 01/19/25 15:13 Baso % (Auto) 0.4 % 01/19/25 15:13 Neut # (Auto) 11.81 K/uL (1.40-6.50) H 01/19/25 15:13 Lymph # (Auto) 1.19 K/uL (1.20-3.40) L 01/19/25 15:13 [place] # (Auto) 1.04 K/uL (0.11-0.59) H 01/19/25 15:13 Eos # (Auto) 0.01 K/uL (0.00-0.50) 01/19/25 15:13 Baso # (Auto) 0.05 K/uL (0.00-0.20) 01/19/25 15:13 Immature Gran # (Auto) 0.05 K/uL (0.01-0.20) 01/19/25 15:13 PT 11.4 Seconds (9.0-12.0) 01/19/25 22:32 INR 1.1 (0.9-1.1) 01/19/25 22:32 VBG pH 7.35 (7.36-7.41) L 01/19/25 16:31 VBG pCO2 44 mmHg (38-50) 01/19/25 16:31 VBG pO2 31 mmHg 01/19/25 16:31 VBG HCO3 24 mmol/L 01/19/25 16:31 VBG O2 Saturation < 60.0 % 01/19/25 16:31 VBG Base Excess -1.5 mEq/L 01/19/25 16:31 POC Sodium 142 mmol/L (135-144) 01/19/25 15:19 Sodium 141 mmol/L (136-145) 01/19/25 15:13 POC Potassium 4.1 mmol/L (3.3-5.0) 01/19/25 15:19 Potassium 4.1 mmol/L (3.5-5.1) 01/19/25 15:13 POC Chloride 106 mmol/L (101-112) 01/19/25 15:19 Chloride 107 mmol/L (98-107) 01/19/25 15:13 Carbon Dioxide 24 mmol/L (21-32) 01/19/25 15:13 POC Total CO2 21 mmol/L (24-31) L 01/19/25 15:19 Anion Gap 10 (3-11) 01/19/25 15:13 POC Anion Gap 20.0 mmol/L (16-25) 01/19/25 15:19 POC BUN 12 mg/dl (7-18) 01/19/25 15:19 BUN 13 mg/dl (6-23) 01/19/25 15:13 Creatinine 0.83 mg/dl (0.6-1.2) 01/19/25 15:13 POC Creatinine 1.0 mg/dl (0.6-1.3) 01/19/25 15:19 Est Cr Clr Drug Dosing 137.6 ml/min 01/19/25 15:13 eGFR 102.79 01/19/25 15:13 BUN/Creatinine Ratio 15.7 (10-20) 01/19/25 15:13 Glucose 90 mg/dl (70-99(Fasting)) 01/19/25 15:13 POC Glucose (other) 94 mg/dl (70-99) 01/19/25 15:19 Calcium 9.1 mg/dl (8.6-10.3) 01/19/25 15:13 POC Ioniz Calcium Emma 1.13 mmol/l (1.12-1.32) 01/19/25 15:19 Magnesium 1.7 mg/dl (1.7-2.4) 01/19/25 15:13 Total Bilirubin 0.5 mg/dl (0.2-1.0) 01/19/25 15:13 AST 25 U/L (13-39) 01/19/25 15:13 ALT 15 U/L (7-52) 01/19/25 15:13 Alkaline Phosphatase 43 U/L (34-104) 01/19/25 15:13 Troponin I High Sens 2.8 pg/ml (0-14) 01/19/25 15:13 Total Protein 7.7 gm/dl (6.0-8.3) 01/19/25 15:13 Albumin 4.5 gm/dl (3.4-5.0) 01/19/25 15:13 Globulin 3.2 gm/dl (2.5-4.0) 01/19/25 15:13 Albumin/Globulin Ratio 1.4 (0.9-2) 01/19/25 15:13 Lipase 33 U/L (11-82) 01/19/25 15:13 HCG, Qual Negative (Negative) 01/19/25 15:13 Urine Color Yellow 01/19/25 19:56 Urine Appearance Clear (Clear) 01/19/25 19:56 Urine pH 6.5 (4.5-7.5) 01/19/25 19:56 Ur Specific [place] > 1.045 (1.000-1.030) H 01/19/25 19:56 Urine Protein Negative (Negative) 01/19/25 19:56 Urine Glucose (UA) Negative (Negative) 01/19/25 19:56 Urine Ketones Trace (Negative) H 01/19/25 19:56 Urine Blood 3+ (Negative) H 01/19/25 19:56 Urine Nitrite Negative (Negative) 01/19/25 19:56 Urine Bilirubin Negative (Negative) 01/19/25 19:56 Urine Urobilinogen Negative (Negative) 01/19/25 19:56 Ur Leukocyte Esterase 1+ (Negative) H 01/19/25 19:56 Urine WBC (Auto) 21-50 /hpf (0-5) H 01/19/25 19:56 Urine RBC (Auto) 0-2 /hpf (0-2) 01/19/25 19:56 U Hyaline Cast (Auto) 0-2 /lpf (0-2) 01/19/25 19:56 U Epithel Cells (Auto) 3-5 /hpf (0-2) H 01/19/25 19:56 Urine Bacteria (Auto) 2+ (None Seen) H 01/19/25 19:56 Salicylates < 3.0 mg/dl (3.0-30) L 01/19/25 16:31 Urine Opiates Screen Neg (Neg) 01/19/25 19:56 Ur Methadone, Qual Neg (Neg) 01/19/25 19:56 Urine Fentanyl Screen Neg (Neg) 01/19/25 19:56 Acetaminophen 20 ug/ml (10-30) 01/19/25 21:15 Urine Barbiturates Neg (Neg) 01/19/25 19:56 Ur Phencyclidine (PCP) Neg (Neg) 01/19/25 19:56 U Amphetamin/Meth Scrn Neg (Neg) 01/19/25 19:56 MDMA (Ecstasy) Screen Neg (Neg) 01/19/25 19:56 U Benzodiazepines Scrn Neg (Neg) 01/19/25 19:56 Ur Cocaine Metabolite Neg (Neg) 01/19/25 19:56 U Marijuana (THC) Screen Neg (Neg) 01/19/25 19:56 Ethyl Alcohol mg/dL 35.5 mg/dl (<10.0) H 01/19/25 16:31 SARS-CoV-2, RNA, NAAT NEGATIVE (NEGATIVE) 01/19/25 19:54 Impressions Head CTA 01/19/25 15:23 EXAM: CT Angiography Head and Neck With Intravenous Contrast INDICATION: Attempted hanging. TECHNIQUE: [place]/head and neck CT angiography protocol performed with intravenous contrast. Sagittal and coronal reformatted images were created and reviewed. This CT exam was performed using one or more of the following dose reduction techniques: automated exposure control, adjustment of the mA and/or kV according to patient size, and/or use of iterative reconstruction technique. MIP reconstructed images were created and reviewed. CONTRAST: 119ml of Optiray 320 was administered intravenously. COMPARISON: None. FINDINGS: HEAD: Right anterior cerebral artery: No abnormality noted. No occlusion or significant stenosis. Anterior communicating artery is present. No aneurysm. Right middle cerebral artery: No abnormality noted. No occlusion or significant stenosis. No aneurysm. Right posterior cerebral artery: No abnormality noted. No occlusion or significant stenosis. No aneurysm. Right intracranial internal carotid artery: No abnormality noted. No significant stenosis. No dissection or occlusion. Right intracranial vertebral artery: No abnormality noted. No significant stenosis. No dissection or occlusion. Left anterior cerebral artery: No abnormality noted. No occlusion or significant stenosis. No aneurysm. Left middle cerebral artery: No abnormality noted. No occlusion or significant stenosis. No aneurysm. Left posterior cerebral artery: No abnormality noted. No occlusion or significant stenosis. No aneurysm. Left intracranial internal carotid artery: No abnormality noted. No significant stenosis. No dissection or occlusion. Left intracranial vertebral artery: No abnormality noted. No significant stenosis. No dissection or occlusion. Basilar artery: No abnormality noted. No occlusion or significant stenosis. No aneurysm. Other vasculature: Patent dural venous sinuses. No vascular malformation. Brain and extra-axial spaces: There is mild nonspecific periventricular white matter hypodensity. No acute territorial infarct noted. No hemorrhage. No extra-axial fluid collection or hydrocephalus. NECK: Right common carotid artery: No abnormality noted. No significant stenosis. No dissection or occlusion. Right extracranial internal carotid artery: No abnormality noted. No significant stenosis. No dissection or occlusion. Right external carotid artery: No abnormality noted. No occlusion. Right extracranial vertebral artery: No abnormality noted. No significant stenosis. No dissection or occlusion. Left common carotid artery: No abnormality noted. No significant stenosis. No dissection or occlusion. Left extracranial internal carotid artery: No abnormality noted. No significant stenosis. No dissection or occlusion. Left external carotid artery: No abnormality noted. No occlusion. Left extracranial vertebral artery: No abnormality noted. No significant stenosis. No dissection or occlusion. Lung apices: Extensive patchy peribronchial infiltrates noted in the right upper lobe. No apical pneumothorax or pleural effusion. HEAD and NECK: Bones/joints: The bones are intact. In particular, C2 and the hyoid bone are intact. Soft tissues: No abnormality noted. Lymph nodes: [place]ty multicompartment nodes present bilaterally. No pathologically enlarged nodes. CAROTID STENOSIS REFERENCE USING NASCET CRITERIA: % ICA stenosis = (1 - narrowest ICA diameter/diameter of distal cervical ICA) x 100. Mild - <50% stenosis. Moderate - 50-69% stenosis. Severe - 70-94% stenosis. Near occlusion - 95-99% stenosis. Occluded - 100% stenosis. IMPRESSION: 1. No angiographic abnormality in the head or neck. 2. Patchy peribronchial infiltrates noted in the right upper lobe. Consider aspiration. ACT 112: N/A Electronically signed by Irene Samano 01-19-2025 4:01 PM Neck CTA 01/19/25 15:23 EXAM: CT Angiography Head and Neck With Intravenous Contrast INDICATION: Attempted hanging. TECHNIQUE: [place]/head and neck CT angiography protocol performed with intravenous contrast. Sagittal and coronal reformatted images were created and reviewed. This CT exam was performed using one or more of the following dose reduction techniques: automated exposure control, adjustment of the mA and/or kV according to patient size, and/or use of iterative reconstruction technique. MIP reconstructed images were created and reviewed. CONTRAST: 119ml of Optiray 320 was administered intravenously. COMPARISON: None. FINDINGS: HEAD: Right anterior cerebral artery: No abnormality noted. No occlusion or significant stenosis. Anterior communicating artery is present. No aneurysm. Right middle cerebral artery: No abnormality noted. No occlusion or significant stenosis. No aneurysm. Right posterior cerebral artery: No abnormality noted. No occlusion or significant stenosis. No aneurysm. Right intracranial internal carotid artery: No abnormality noted. No significant stenosis. No dissection or occlusion. Right intracranial vertebral artery: No abnormality noted. No significant stenosis. No dissection or occlusion. Left anterior cerebral artery: No abnormality noted. No occlusion or significant stenosis. No aneurysm. Left middle cerebral artery: No abnormality noted. No occlusion or significant stenosis. No aneurysm. Left posterior cerebral artery: No abnormality noted. No occlusion or significant stenosis. No aneurysm. Left intracranial internal carotid artery: No abnormality noted. No significant stenosis. No dissection or occlusion. Left intracranial vertebral artery: No abnormality noted. No significant stenosis. No dissection or occlusion. Basilar artery: No abnormality noted. No occlusion or significant stenosis. No aneurysm. Other vasculature: Patent dural venous sinuses. No vascular malformation. Brain and extra-axial spaces: There is mild nonspecific periventricular white matter hypodensity. No acute territorial infarct noted. No hemorrhage. No extra-axial fluid collection or hydrocephalus. NECK: Right common carotid artery: No abnormality noted. No significant stenosis. No dissection or occlusion. Right extracranial internal carotid artery: No abnormality noted. No significant stenosis. No dissection or occlusion. Right external carotid artery: No abnormality noted. No occlusion. Right extracranial vertebral artery: No abnormality noted. No significant stenosis. No dissection or occlusion. Left common carotid artery: No abnormality noted. No significant stenosis. No dissection or occlusion. Left extracranial internal carotid artery: No abnormality noted. No significant stenosis. No dissection or occlusion. Left external carotid artery: No abnormality noted. No occlusion. Left extracranial vertebral artery: No abnormality noted. No significant stenosis. No dissection or occlusion. Lung apices: Extensive patchy peribronchial infiltrates noted in the right upper lobe. No apical pneumothorax or pleural effusion. HEAD and NECK: Bones/joints: The bones are intact. In particular, C2 and the hyoid bone are intact. Soft tissues: No abnormality noted. Lymph nodes: [place] multicompartment nodes present bilaterally. No pathologically enlarged nodes. CAROTID STENOSIS REFERENCE USING NASCET CRITERIA: % ICA stenosis = (1 - narrowest ICA diameter/diameter of distal cervical ICA) x 100. Mild - <50% stenosis. Moderate - 50-69% stenosis. Severe - 70-94% stenosis. Near occlusion - 95-99% stenosis. Occluded - 100% stenosis. IMPRESSION: 1. No angiographic abnormality in the head or neck. 2. Patchy peribronchial infiltrates noted in the right upper lobe. Consider aspiration. ACT 112: N/A Electronically signed by Irene Samano 01-19-2025 4:01 PM PG Care Time/CCT Total # of Minutes Spent Total Time Spent with Patient: Total time spent is greater than 50% in coordination of care (as documented) at patient's floor/unit and/or counseling patient: Coding Level of Care Code 49677 INT INP/OBS CARE 3/75MIN Diagnoses Suicide attempt by drug overdose T50.902A Suicide attempt by hanging T71.162A Aspiration into airway T17.908A
[2025-01-20] MEDS: AcetylCYSTEINE 10,000 MG in DEXTROSE 5% 1,000 ML IV ONE (04:54)
--- NOTE | 2025-01-20 07:10 | Electrocardiogram Report ---
Test Reason : Blood Pressure : */* mmHG Vent. Rate : 134 BPM Atrial Rate : 134 BPM P-R Int : 132 ms QRS Dur : 68 ms QT Int : 288 ms P-R-T Axes : 57 75 17 degrees QTcB Int : 430 ms Sinus tachycardia Abnormal ECG No previous ECGs available Confirmed by Saw Ramírez ([id number]) on 01/20/2025 7:09:40 AM Referred By: Confirmed By: Saw Ramírez
[2025-01-20 07:32] LABS: Hematocrit (blood only) 36.4 % (37.0-47.0); Hemoglobin 12.2 g/dl (12.0-16.0); Mean Corpuscular Hemoglobin 30.5 pg (25.0-34.0); Mean Corpuscular Hgb Conc 33.5 g/dL (32.0-36.0); Mean Platelet Volume 9.6 fL (9.4-12.4); Platelet Count 227 K/uL (130-400); RDW Coefficient of Variation 12.6 % (11.5-14.5); RDW Standard Deviation 42.6 fL (36.4-46.3); White Blood Count 9.15 K/ul (4.8-10.8)
[2025-01-20 07:55] LABS: Albumin Level 3.4 gm/dl (3.4-5.0); Bilirubin Direct 0.1 mg/dl (0-0.2); Bilirubin,Total 0.6 mg/dl (0.2-1.0); Calcium 7.9 mg/dl (8.6-10.3); Creatinine Clr Calc Pharmacy 186.5 ml/min; Potassium 3.5 mmol/L (3.5-5.1); Total Protein 5.8 gm/dl (6.0-8.3)
[2025-01-20 08:08] LABS: INR 1.2 (0.9-1.1); Prothrombin Time 12.4 Seconds (9.0-12.0)
[2025-01-20] MEDS: SUCRALFATE 1 GM/10 ML UDC PO SCH (12:17)
--- NOTE | 2025-01-20 13:36 | Psychiatric Consultation ---
Date of Consultation January 20, 2025 Impression / Recommendations Impression Viktoriya Bowen is a 19-year-old woman and [employer] senior with no significant past psychiatric, medical or surgical history presenting after intentional overdose and attempted hanging. Psychiatry consulted for suicide attempt/risk assessment. This is a 19 yo, [employer] senior admitted medically following an intentional overdose suicide attempt. Diagnostically consistent with MDD in the context of recent stressors including academic difficulty leading to inability to graduate as anticipated yesterday and difficulty coming to terms with this and being open about her struggles with her family/supports. Acute risk of self-harm remains elevated and high given suicide attempt requiring medical admission, major depressive symptoms, hopelessness, previous unwillingness to seek treatment, limited insight, high psychic distress. Given elevated risk of harm to self they meet criteria for inpatient psychiatric care for diagnostic clarification, safety/stabilization, development of additional coping skills, medication man agement and disposition/safety planning once medically stable. Currently she is willing for voluntary inpatient psychiatric treatment once medically stable. If she does not agree to voluntary treatment at that time she will meet criteria for 302 status based on severity of suicide attempt and ongoing modifiable risk factors. Overall, I spent a total of 60 minutes with this case including review of chart records, review of labwork, direct evaluation of the patient at bedside, counseling the patient, discussion of the patient with the Nurse and with the hospitalist provider, discussion with the psychiatric liason during clinical rounds and documentation in the electronic health record. (1) Suicide attempt by drug overdose: (2) Suicide attempt by hanging: (3) Major depressive disorder with current active episode: (4) Has difficulties with academic performance: Plan -Continue 1-on-1 for risk of harm to self -Do not discharge or allow to leave AMA, if attempts to do so call security and psych liason as she meets 302 criteria -No psych medications for now, options can be reviewed during inpatient psych hospitalization -Once medically cleared plan for psychiatric hospitalization (her insurance is out of network for our unit, she would like bed search to include facilities near her parents/home town in [facility]) Psych History Identifying Data Viktoriya Bowen is a 19-year-old woman and [employer] senior with no significant past psychiatric, medical or surgical history presenting after intentional overdose and attempted hanging. Psychiatry consulted for suicide attempt/risk assessment. Chief Complaint "I was really out of options". History of Present Illness Viktoriya was brought to the hospital via ambulance after her father found her unresponsives and after she attempted to hang herself with [place] lights and then took liquid Advil (estimated ~20-40 tabs of 200mg ibuprofen).Acetaminophen level was slightly elevated in the ED so poison control recommended NAC though she denies taking anything else as part of her suicide attempt. Further history per admission H&P by Dr. Garcia on 01/20/2025: "Patient with increased interpersonal stress of late. She did not pass her final semester at [employer]. She was due to graduate today and has been telling her family and friends that she was graduating. Today she felt overwhelmed by the stress of having to face the truth of not graduating. Patient took "a lot of Advil" unable to quantify exact amount. She also tried briefly to hang herself with [place] lights in her bathroom but states she "did not go through with that" Her family found her unresponsive this afternoon with 2 empty bottles of liquid Advil Patient with no formal psychiatric diagnosis. She did have a mental health assessment with her PCP over the summer and her primary care doctor recommended that she consider therapy because she was scoring very high for possible depression. Patient has had passive suicidal ideations in the past but no plan or prior attempts. she reports that her recent stress has "been building up" Patient denies taking Tylenol. She did drink alcohol on Tuesday p.m. 01/18/2025. Otherwise denies coingestants Denies hallucinations" Today she reports feeling tired but is "thankful" to be alive. Attributes this change in her perspective to talking to a lot of her extended family and parents following the overdose and feeling very supported and not as trapped. Describes that she has always struggled to communicated her needs ("I have a hard time asking for help") and worried about disappointing her parents by telling them that she wouldn't be graduating. Instead she's been avoiding thinking about it, has avoided talking to her advisor and increasingly felt trapped and the pressure of approaching graduation date building. She started planning her suicide attempt about two weeks ago and did some research and found that Advil could be very harmful. States she was limited in her access to potential means. She planned out date of attempt as Tuesday night (01/18/2025) after having a nice "final" dinner with her father, his fiancee and her friend to celebrate what they believed was to be her graduation tomorrow. Reflects that she started to develop depression last spring 2023 and this worsened into the fall and spring causing her to start failing classes. She's not sure how many classes she'll need to make up in order to eventually graduate. States her PCP had recommended therapy this fall but she "never followed up". She is now willing to do this and consider medication. Her family is supportive of treatment and she reports they want her to take a break from school for the summer. She plans to live at home with them in [facility] for the summer. Had some nausea yesterday, today this is lessening and able to eat some fruit so far today. Ambulating. She's never been on any psychiatric medication before and has no current outpatient psychiatry/therapy providers. No history of any prior suicide attempts. Past Psychiatric History Current Psychiatric Diagnosis: denies History of Previous Suicide Attempt: No Allergies Allergy/AdvReac Type Severity Reaction Status Date / Time No Known Allergies Allergy Verified 01/19/25 16:22 Home Medications Medication Instructions Recorded Confirmed Type ibuprofen 200 mg tablet (Advil) 400 mg PO Q6H PRN Pain 01/19/25 01/19/25 History Patient History Social History Smoking Status: Never smoker Preferred Language: Mauritian Feels Safe at Home: Yes Gender Identity: Female Physical Exam Psychiatric: Orientation: alert, oriented x 3 and cooperative Apperance: appropriately dressed and appropriately groomed Eye Contact: good eye contact Motor Behavior: no abnormal motor movements Speech: normal rate/rhythm/volume of speech Affect: + constricted affect Mood: + depressed mood and + anxious mood Thought Process: goal directed thought process Thought Content: reality based without delusions Suicidal Thou ghts: denies suicidal thoughts (but s/p serious suicide attempt) Homicidal Thoughts: denies homicidal thoughts Hallucinations: no auditory hallucinations and no visual hallucinations Insight: + limited insight Judgment: + limited judgement Vital Signs (Past 24 Hours): Last Vital Signs Temp 36.6 C 01/19/25 21:00 Pulse 89 01/20/25 11:24 Resp 14 01/20/25 11:24 BP 128/86 01/20/25 11:24 Pulse Ox 95 01/20/25 11:24 O2 Del Method Room Air 01/20/25 11:24 O2 Flow Rate 2 01/19/25 21:09 Results & Data (PSY) Medications Administered Acetylcysteine 10,000 mg/ (Dextrose) 1,050 mls @ 62.5 mls/hr IV ONCE ONE; Protocol Stop: 01/20/25 20:15 Last Admin: 01/20/25 04:54 Dose: 62.5 mls/hr Documented By: SAVITA Sucralfate (Sucralfate 1 Gm/10 Ml Udc) 1 gm PO QID AURELIO Stop: 02/19/25 12:59 Last Admin: 01/20/25 12:17 Dose: 1 gm Documented By: ABIDA Coding Level of Care Code 34434 IN/OBS CONSULT LVL 4,60M Diagnoses Suicide attempt by drug overdose T50.902A Suicide attempt by hanging T71.162A Major depressive disorder with current active episode F32.9 Has difficulties with academic performance Z55.9
[2025-01-20 18:51] LABS: Bilirubin Direct 0.1 mg/dl (0-0.2); Bilirubin,Total 0.5 mg/dl (0.2-1.0); Total Protein 6.6 gm/dl (6.0-8.3)
[2025-01-20 19:03] LABS: INR 1.1 (0.9-1.1); Prothrombin Time 11.9 Seconds (9.0-12.0)
[2025-01-20 19:06] LABS: Thyroid Stimulating Hormone 0.746 uIu/ml (0.300-4.500)
[2025-01-20 19:17] LABS: Folate (Folic Acid),Ser orPlas 12.98 ng/ml (>5.38)
--- NOTE | 2025-01-20 19:36 | Hospitalist Progress Note ---
Date of Service January 20, 2025 Assessment & Plan (1) Suicide attempt by drug overdose: (2) Suicide attempt by hanging: (3) Aspiration into airway: Plan 19-year-old female presenting after suicide attempt. Patient took at least 1 bottle of liquid Advil, attempted to hang herself #Suicide attempt by drug overdosepatient reports taking at least 1 bottle of liquid Advil, denies taking acetaminophen. Denies alcohol use today Poison control contacted. They were concerned about patient's elevated acetaminophen level of 49 which decreased to 20 on repeat. Patient denies taking acetaminophen Admit to PCU Continue N-acetylcysteine per protocol Repeat BMP, CBC, LFTs and Tylenol level in the morning Maintain one-to-one observation Suicide precautions Psychiatry consultation 1) Suicide attempt by drug overdose: (2) Suicide attempt by hanging: (3) Major depressive disorder with current active episode: (4) Has difficulties with academic performance: Plan -Continue 1-on-1 for risk of harm to self -Do not discharge or allow to leave AMA, if attempts to do so call security and psych liason as she meets 302 criteria -No psych medications for now, options can be reviewed during inpatient psych hospitalization -Once medically cleared plan for psychiatric hospitalization (her insurance is out of network for our unit, she would like bed search to include facilities near her parents/home town in [facility] area) #Suicide attempt by hangingno evidence of neck trauma, no stridor Maintain one-to-one observation, suicide precautions #UTIUA suggestive of infection Continue ceftriaxone #Aspiration into airway CTA of the neck with patchy peribronchial infiltrates in the right upper lobe, possible aspiration. Patient with no shortness of breath, cough. She has adequate oxygenation on room air Continue to monitor Poison control requested LFTs and coagulation profile later today I have ordered homocystine vitamin D B12 and TSH levels if they are deficient this might help in mental health recovery Admission and Anticipated Discharge Date Admission Date: January 19, 2025 Loren Bowen is a 19-year-old woman and [employer] senior with no significant past psychiatric, medical or surgical history presenting after intentional overdose and attempted hanging. Psychiatry consulted for suicide attempt/risk assessment. This is a 19 yo, [employer] senior admitted medically following an intentional overdose suicide attempt. Diagnostically consistent with MDD in the context of recent stressors including academic difficulty leading to inability to graduate as anticipated yesterday and difficulty coming to terms with this and being open about her struggles with her family/supports. Acute risk of self-harm remains elevated and high given suicide attempt requiring medical admission, major depressive symptoms, hopelessness, previous unwillingness to seek treatment, limited insight, high psychic distress. Given elevated risk of harm to self they meet criteria for inpatient psychiatric care for diagnostic clarification, safety/stabilization, development of additional coping skills, medication management and disposition/safety planning once medically stabl Review of Systems Review of Systems: Patient denies any chest pain epigastric pain flank pain or dysuria Physical Exam Physical Exam: General: patient resting comfortably, NAD, non-toxic in appearance, AA&O x 4 Skin: warm, dry, intact, no rashes or lesions HEENT: NC/AT, PERRL, EOMI, anicteric sclera, conjunctiva without injection, external ear normal to inspection and nontender, nares patent, moist mucus membranes, dentition intact, no oropharyngeal lesions, neck supple, trachea midline, no LAD, no thyromegaly, no JVD Heart: +S1/S2, regular, no m/r/g Lungs: equal air entry bilaterally, no rales/rhonchi/wheezes Abd: +BS, soft, NT/ND, no masses/organomegaly/ascites Ext: warm, 2+ pulses in UE/LE bilaterally, no clubbing/cyanosis or edema Neuro: nonfocal, patient AA&O x 4, speech intact, no facial droop, moving all extremities on command with equal strength 5/5 Results & Data Results & Data Vital Signs (Past 12 Hours) Vital Signs Pulse Pulse Resp BP BP Pulse Ox O2 Del Method 01/20/25 18:30 95 H 19 01/20/25 18:06 90 21 01/20/25 17:36 104 H 14 100 01/20/25 17:15 99 H 19 94 01/20/25 16:48 94 H 15 96 01/20/25 16:00 84 17 97 01/20/25 15:30 90 13 98 01/20/25 15:15 90 19 98 01/20/25 15:12 149/99 H 01/20/25 11:24 89 14 128/86 95 Room Air PG Care Time/CCT Total # of Minutes Spent Total Time Spent with Patient: Total time spent is greater than 50% in coordination of care (as documented) at patient's floor/unit and/or counseling patient: Coding Level of Care Code 45790 SUB INP/OBS CARE 3/50MIN Diagnoses Suicide attempt by drug overdose T50.902A Suicide attempt by hanging T71.162A Aspiration into airway T17.908A Time Spent (min) 50 Comment Counseling was provided to patient about taking care of mind-body and spiritual aspects
[2025-01-20] MEDS: cefTRIAXone SODIUM 2,000 MG/50 ML BAG IV SCH (22:00)
[2025-01-21 06:06] LABS: Basophils # (auto) 0.03 K/uL (0.00-0.20); Basophils % (auto) 0.6 %; Eosinophils # (auto) 0.05 K/uL (0.00-0.50); Hematocrit (blood only) 37.9 % (37.0-47.0); Hemoglobin 12.4 g/dl (12.0-16.0); Immature Granulocytes # (auto) 0.01 K/uL (0.01-0.20); Immature Granulocytes % (auto) 0.2 %; Lymphocytes # (auto) 1.26 K/uL (1.20-3.40); Lymphocytes % (auto) 25.5 %; Mean Corpuscular Hemoglobin 30.7 pg (25.0-34.0); Mean Corpuscular Hgb Conc 32.7 g/dL (32.0-36.0); Mean Corpuscular Volume 93.8 fL (80.0-100.0); Mean Platelet Volume 9.7 fL (9.4-12.4); Monocytes # (auto) 0.66 K/uL (0.11-0.59); Monocytes % (auto) 13.3 %; Neutrophils # (auto) 2.94 K/uL (1.40-6.50); Neutrophils % (auto) 59.4 %; Platelet Count 209 K/uL (130-400); RDW Coefficient of Variation 12.7 % (11.5-14.5); Red Blood Count 4.04 M/uL (4.20-5.40); White Blood Count 4.95 K/ul (4.8-10.8)
[2025-01-21 06:53] LABS: Albumin Globulin Ratio 1.5 (0.9-2); Albumin Level 3.5 gm/dl (3.4-5.0); BUN Creatinine Ratio 15.2 (10-20); Bilirubin,Total 0.4 mg/dl (0.2-1.0); Calcium 8.5 mg/dl (8.6-10.3); Creatinine Clr Calc Pharmacy 170.5 ml/min; Globulin 2.4 gm/dl (2.5-4.0); Potassium 3.5 mmol/L (3.5-5.1); Total Protein 5.9 gm/dl (6.0-8.3)
[2025-01-21 07:28] VITALS: RESP 20
--- NOTE | 2025-01-21 07:41 | Hospitalist Progress Note ---
Date of Service January 21, 2025 Assessment & Plan (1) Suicide attempt by drug overdose: (2) Suicide attempt by hanging: (3) Aspiration into airway: Plan 19-year-old female presenting after suicide attempt. Patient took at least 1 bottle of liquid Advil, attempted to hang herself #Suicide attempt by drug overdose and hanging attemptpatient reports taking at least 1 bottle of liquid Advil, denies taking acetaminophen. Denies alcohol use today Poison control contacted. They were concerned about patient's elevated acetaminophen level of 49 which decreased to 20 on repeat. Patient denies taking acetaminophen Completed N-acetylcysteine per protocol Maintain one-to-one observation Suicide precautions Psychiatry consultation-recomments Do not discharge or allow to leave AMA, if attempts to do so call security and psych liason as she meets 302 criteria -No psych medications for now, options can be reviewed during inpatient psych hospitalization - Pt is now medically cleared and can begin bed search for inpatient treatment plan & psychiatric hospitalization, her parents/home town in [facility] area and have supplied local facilities #UTIUA suggestive of infection, [place] growth Continue ceftriaxone, since no confirmed infection consider 3 days total # vitamin D deficiency, will begin po supplementation Medically stable for transfer Admission and Anticipated Discharge Date Admission Date: January 19, 2025 Subjective pt seen in the company of her father, she describes no ill affects she confirms she is open to voluntary in patient psychiatric care she states she has minor anxiety at the moment but overall is in a better place Physical Exam Physical Exam: neck with some mild bruising no stridor lungs are clear cardiac is regular abd is soft Results & Data Results & Data Vital Signs (Past 12 Hours) Vital Signs Temp Pulse Pulse Resp BP Pulse Ox Pulse Ox 01/21/25 07:27 97.5 F L 78 20 119/88 98 01/21/25 03:59 97.7 F 80 16 120/80 96 01/21/25 03:00 98 01/21/25 01:20 90 01/20/25 23:15 98.2 F 82 16 110/83 96 01/20/25 20:14 97.9 F 93 H 16 141/101 H 97 01/20/25 19:45 110 H O2 Del Method O2 Del Method 01/21/25 07:27 Room Air 01/21/25 03:59 Room Air 01/21/25 03:00 Room Air 01/21/25 01:20 01/20/25 23:15 Room Air 01/20/25 20:14 Room Air 01/20/25 19:45 PG Care Time/CCT Total # of Minutes Spent Total Time Spent with Patient: Total time spent is greater than 50% in coordination of care (as documented) at patient's floor/unit and/or counseling patient: Coding Level of Care Code 69066 SUB INP/OBS CARE 2/35MIN Diagnoses Suicide attempt by drug overdose T50.902A Suicide attempt by hanging T71.162A Aspiration into airway T17.908A
[2025-01-21] MEDS: CHOLECALCIFEROL 125 MCG (5,000 UNITS) TAB PO SCH (09:53)
[2025-01-21 10:25] VITALS: PULSE 89; TEMP 97.7; O2SAT 97
[2025-01-21 12:47] VITALS: BP 128/86
--- NOTE | 2025-01-21 16:12 | Discharge Summary ---
Discharge Summary Date of Service January 21, 2025 Principal Dx & Hospital Course #1 = Principal Diagnosis (1) Suicide attempt by drug overdose: (2) Suicide attempt by hanging: (3) Aspiration into airway: Plan 19-year-old female presenting after suicide attempt. Patient took at least 1 bottle of liquid Advil, attempted to hang herself #Suicide attempt by drug overdose and hanging attemptpatient reports taking at least 1 bottle of liquid Advil, denies taking acetaminophen. Denies alcohol use today Poison control contacted. They were concerned about patient's elevated acetaminophen level of 49 which decreased to 20 on repeat. Patient denies taking acetaminophen Completed N-acetylcysteine per protocol Maintain one-to-one observation Suicide precautions Psychiatry consultation-recomments not to discharge or allow to leave AMA, -No psych medications for now, options can be reviewed during inpatient psych hospitalization - Pt is medically cleared and bed search for inpatient treatment plan & psychiatric hospitalization, her parents/home town in [facility] area and will look for inpatient bed at local facilities, such bed is secured and pt transferred by secure transport service #UTIUA suggestive of infection, [place] growth Continue ceftriaxone, since no confirmed infection will not have additional antibiotics # vitamin D deficiency, will begin po supplementation Medically stable for transfer Notes For Next Care Provider Follow vitamin D supplementation for appropriate augmentation Admission HPI Per Admitting Provider Viktoriya Bowen Is a 19-year-old female with no significant past medical or surgical history presenting after intentional overdose and attempted hanging. Patient with increased interpersonal stress of late. She did not pass her final semester at [employer]. She was due to graduate today and has been telling her family and friends that she was graduating. Today she felt overwhelmed by the stress of having to face the truth of not graduating. Patient took "a lot of Advil" unable to quantify exact amount. She also tried briefly to hang herself with [place] lights in her bathroom but states she "did not go through with that" Her family found her unresponsive this afternoon with 2 empty bottles of liquid Advil Patient with no formal psychiatric diagnosis. She did have a mental health assessment with her PCP over the summer and her primary care doctor recommended that she consider therapy because she was scoring very high for possible depression. Patient has had passive suicidal ideations in the past but no plan or prior attempts. she reports that her recent stress has "been building up" Patient denies taking Tylenol. She did drink alcohol on Tuesday p.m. 01/18/2025. Otherwise denies coingestants Denies hallucinations Discharge Exam Awake alert and appropriate. Agreeable to voluntary rehab Small bruises available on neck otherwise no abnormal physical findings Discharge Plan Discharge Items Patient Disposition: Transfer Behavioral Health [facility] Reason For Visit: INTENTIONAL OVERDOSE, SUICIDE ATTEMPT Discharge Diagnosis: Depression suicide attempt Condition on Discharge: Fair Activity: Per Instructions section Activity Comment: please report to inpatient [facility] facility Non-emergency contact: Primary Care Provider and Psychiatrist Call non-emergency contact if: your symptoms worsen Follow-up/Referrals: PCP,NO [Primary Care Provider] - Diet: Regular Addtl Attending Provider Instructions: please follow up with inpatient [facility] facility you are vitamin D deficient, please take 125 mg of vitamin D daily and have your primary care check you vitamin d level after 3 months for further advice Pending Studies at Discharge: No Stand-Alone Forms: My [facility] Medications and DC Order Prescriptions: New cholecalciferol (vitamin D3) 125 mcg (5,000 unit) Tablet 125 mcg PO QAM Qty: 90 0RF Discontinued ibuprofen [Advil] 200 mg Tablet 400 mg PO Q6H PRN (Reason: Pain) Discharge Orders: Discharge Order (Routine); Ordered 01/21/25 Ordered By: Ramo Martinez Admission Data Admit Date/Time: 01/19/25 23:43 Attending Provider: Ramo Martinez Admit Provider: Rossi Garcia Primary Care Provider: PCP,NO Other Providers: Rossi Garcia; Marizol Kitchen; Td Naranjo; Saloni Toledo; Tatiana Lovett; Bib Sanchez; Kortney Morales Other Interventions: Discharge Summary Assessment (RN) Last Done: 01/21/25 12:43 Hospital Stay Data Consultations 01/19/25 23:05 ED Decision to Admit Stat 01/20/25 00:10 Consult Psychiatry Routine Diagnostic Imagining Performed 01/19/25 15:23 CTA head wo/w [CT angio head wo/w] Stat CTA neck with con [CT angio neck with con] Stat Pending Results Patient Have Any Pending Studies at Discharge: No Discharge Instructions Given to Patient (Per Discharging Provider) please follow up with inpatient behavioral health facility you are vitamin D deficient, please take 125 mg of vitamin D daily and have your primary care check you vitamin d level after 3 months for further advice Total Time Total Time Spent Total Time Spent (In Minutes): It required greater than 30 minutes to prepare this patient for discharge. Coding Level of Care Code 30987 INP/OBS DISCH >30 MIN Diagnoses Suicide attempt by drug overdose T50.902A Suicide attempt by hanging T71.162A Aspiration into airway T17.908A
== END 2025-01-21 14:01 | DRG 918 ==
LOC: ED 15:04 → SUATTDRO 23:43 → EDINP 23:43 → 2E 01-20 00:11